=== PATIENT | male | born 1955 | race Caucasian/White ===

== ENCOUNTER 2020-03-09 08:20 | Outpatient (CLI) | payer MEDICARE ==
[2020-03-09] MEDS ORDERED: FENTANYL PF 100 MCG/2ML ONE ×2 (08:53→08:54)
[2020-03-09] MEDS ORDERED: MIDAZOLAM 1 MG/ML, 5ML ONE (08:54)
== END 2020-03-09 23:59 | disposition home or self-care (01) ==
LOC: RAD 08:20
PROVIDERS: ATTEND Orthopaedic Surgery
DX: M25.512 Pain in left shoulder (principal); M51.04 Intervertebral disc disorders with myelopathy, thoracic region; G95.89 Other specified diseases of spinal cord; M25.78 Osteophyte, vertebrae; M19.012 Primary osteoarthritis, left shoulder; F12.90 Cannabis use, unspecified, uncomplicated
CPT/HCPCS: 72146; 73221; 99156; 99157; J2250; J3010

== ENCOUNTER → 2020-03-23 | Outpatient (CLI) | payer MEDICARE ==
[~2020-03-23] MED LIST: ALPRazolam 1MG TAB ONE; GADOTERATE 7.5 MMOL/15 ML VIAL ONE
== END | disposition home or self-care (01) ==
LOC: RAD 09:03
PROVIDERS: ATTEND Nurse Practitioner
DX: M47.22 Other spondylosis with radiculopathy, cervical region (principal); M48.02 Spinal stenosis, cervical region; R20.2 Paresthesia of skin
CPT/HCPCS: 70553; 72141; A9575

== ENCOUNTER 2020-05-06 12:08 | Outpatient (CLI) | payer MEDICARE ==
[2020-05-06] MEDS ORDERED: MIDAZOLAM 1 MG/ML, 5ML ONE ×2 (13:43)
[2020-05-06] MEDS ORDERED: FENTANYL PF 100 MCG/2ML ONE ×2 (13:43)
[2020-05-06] MEDS ORDERED: GADOTERATE 10 MMOL/20 ML VIAL ONE (14:58)
== END 2020-05-06 23:59 | disposition home or self-care (01) ==
LOC: RAD 12:08 → EDSTATUS 13:00 → RAD 23:59
DX: M54.12 Radiculopathy, cervical region (principal); M48.02 Spinal stenosis, cervical region; M51.04 Intervertebral disc disorders with myelopathy, thoracic region; B02.29 Other postherpetic nervous system involvement; E11.9 Type 2 diabetes mellitus without complications; F12.90 Cannabis use, unspecified, uncomplicated; Z98.890 Other specified postprocedural states; Z87.891 Personal history of nicotine dependence; Z79.899 Other long term (current) drug therapy; Z79.4 Long term (current) use of insulin
CPT/HCPCS: 72156; 72157; 99156; 99157; A9575; J2250; J3010